=== PATIENT | male | born 1980 | race African-American/Black ===

== ENCOUNTER 2022-03-18 14:14 | Emergency (ER) | payer OTHER, SELFPAY ==
[2022-03-18 14:35] VITALS: BP 155/90; PULSE 57; RESP 16; TEMP 36.5; O2SAT 100
--- NOTE | 2022-03-18 14:48 | ED.SKABFB ---
HPI - Skin/Abscess/Foreign Bdy General Chief complaint: Skin/Abscess/Foreign Body Stated complaint: rash/swelling eyes Time Seen by Provider: 03/18/22 14:48 Source: patient Mode of arrival: ambulatory Limitations: no limitations History of Present Illness HPI narrative: 41-year-old male presented for complaint of intermittent rash over the last 3 to 4 days. Also states eyes are puffy and red raised areas over the arms, legs, and left abdomen. He has been taking Benadryl, Claritin, and ibuprofen which resolves the symptoms. Endorses yesterday his tongue felt like it was itching. Upon arrival to [facility] he says rash is gone. He denies shortness of breath, lip, tongue, throat swelling at this time. Denies wheezing, fevers or chills. Denies change to soap,detergent, lotion etc. States he has been working outside in the yard. Additionally, he is aware of elevated blood pressure diagnosis, and states he has been off of medication for several months because he does not have a PCP. Denies chest pain, palpitations, shortness of breath, edema, headache or dizziness. MD complaint: rash Related Data Allergies Allergy/AdvReac Type Severity Reaction Status Date / Time No Known Allergies Allergy Verified 03/18/22 15:04 Review of Systems Review of Systems: CONSTITUTIONAL: Denies body aches, fever, chills, or sweats. EYES: Denies visual changes, redness, or discharge. ENT: Denies rhinorrhea, congestion, sore throat, or otalgia. CARDIOVASCULAR: Denies chest pain, palpitations, or edema. RESPIRATORY: Denies cough or dyspnea. GASTROINTESTINAL: Denies abdominal pain, nausea, vomiting, or diarrhea. GENITOURINARY: Denies dysuria or hematuria. SKIN: reports rash, itching MUSCULOSKELETAL: Denies back pain, joint pain, or myalgia. NEUROLOGIC: Denies headache, numbness, tingling, or weakness. PMFSH Comments At time of signature, I have reviewed and agree with nursing past medical, surgical, social and family history unless otherwise noted. Please see nursing chart for further information. There is no relevant family history pertinent to the presenting complaint Exam Narrative: GENERAL: Well-appearing, EYES: conjunctivae clear, and EOMI. ENT: Mucous membranes moist. Oropharynx without edema, erythema or lesions. CHEST: Clear to auscultation. No respiratory distress. HEART: Regular rate and rhythm. SKIN: Warm, dry. No rash or lesions at this time. NEURO: Alert and oriented x3. PSYCH: Normal mood and affect Course Course Emergency Course: Patient is aware of diagnosis, understands and agrees to treatment plan. Anticipatory guidance given. Patient agrees to follow-up as directed and is aware of reasons to seek care at the emergency department. Portions of this record may have been created with voice recognition software Level of Care: Express Care Visit Vital Signs Vital signs: Vital Signs Temperature 97.7 F 03/18/22 14:35 Pulse Rate 57 L 03/18/22 14:35 Respiratory Rate 16 03/18/22 14:35 Blood Pressure 155/90 H 03/18/22 14:35 Pulse Oximetry 100 03/18/22 14:35 Temperature 97.7 F 03/18/22 14:35 Pulse Rate 57 L 03/18/22 14:35 Respiratory Rate 16 03/18/22 14:35 Blood Pressure 155/90 H 03/18/22 14:35 Pulse Oximetry 100 03/18/22 14:35 Reviewed MDM - Skin/Abscess/Foreign Bdy MDM Narrative Medical decision making narrative: Does not appear at this time to be erythema multiforme, bullous, SJS, TEN. No soft palate or uvula edema, no tongue, lip edema or other mucosal involvement, no respiratory compromise. Instructed patient to go to nearest ER immediately for any worsening symptoms including but not limited to: fever, spreading rash, pain, sore throat, headache, dizziness, chest pain, trouble breathing, or any symptoms concerning to the patient. Pt requested Rx for HTN, we discussed at length risks of starting bp med without f/u. Advised to establish with PCP for elevated BP management. v/u. Differ
== END 2022-03-18 15:20 | disposition home or self-care (01) ==
PROVIDERS: Emergency Provider Nurse Practitioner Family
DX: L23.9 Allergic contact dermatitis, unspecified cause (principal); I10 Essential (primary) hypertension
CPT/HCPCS: 99213; G0463